=== PATIENT | female | born 1955 | race Caucasian/White ===

== ENCOUNTER → 2023-12-13 07:15 | Outpatient (REF) | payer MEDICARE, SELFPAY | LOC: HWWDC 07:15 | PROVIDERS: ATTENDING PHYSICIAN Obstetrics & Gynecology; FAMILY PHYSICIAN General Practice | DX: Z12.31 Encounter for screening mammogram for malignant neoplasm of breast (principal); C54.1 Malignant neoplasm of endometrium | CPT/HCPCS: 77063; 77067 ==

== ENCOUNTER → 2024-12-14 08:01 | Outpatient (REF) | payer MEDICARE, SELFPAY | LOC: HWWDC 08:01 | PROVIDERS: ATTENDING PHYSICIAN Obstetrics & Gynecology; FAMILY PHYSICIAN General Practice; REFERRING PHYSICIAN Internal Medicine Nephrology | DX: M81.0 Age-related osteoporosis without current pathological fracture (principal); Z12.31 Encounter for screening mammogram for malignant neoplasm of breast | CPT/HCPCS: 77063; 77067; 77080 ==